=== PATIENT | male | born 1995 | race Caucasian/White ===

== ENCOUNTER → 2017-08-11 | Outpatient (CLI) | payer OTHER | LOC: M WUC 13:36 | DX: M25.572 Pain in left ankle and joints of left foot (principal); R22.42 Localized swelling, mass and lump, left lower limb | CPT/HCPCS: 73610 ==

== ENCOUNTER → 2018-05-11 | Outpatient (CLI) | payer OTHER | LOC: M WUC 10:52 | DX: M25.571 Pain in right ankle and joints of right foot (principal) | CPT/HCPCS: 73610 ==